=== PATIENT | male | born 1980 | race Caucasian/White ===

== ENCOUNTER 2018-04-10 18:35 | Emergency (ER) | payer MEDICAID ==
[2018-04-10 18:43] VITALS: BP 105/59
--- NOTE | 2018-04-11 01:44 | EDPHY ---
H & P Time Seen by Provider: 04/10/18 18:51 HPI/ROS: Patient left before being seen Smoking Status: Current every day smoker Physical Exam: Unable to perform exam Constitutional: Initial Vital Signs Temperature (C) 36.8 C 04/10/18 18:40 Heart Rate 104 H 04/10/18 18:40 Respiratory Rate 16 04/10/18 18:40 Blood Pressure 105/59 L 04/10/18 18:40 O2 Sat (%) 94 04/10/18 18:40 O2 Delivery Mode Room Air Allergies/Adverse Reactions: No Known Allergies Allergy (Unverified 04/10/18 18:38) Home Medications: Medication Instructions Recorded Adderall 10 MG (*) 04/10/18 Bentyl 10 MG (*) 04/10/18 CLONAZEPAM 04/10/18 Flexeril 10 MG (*) 04/10/18 Oxycodone HCl 04/10/18 traZODone 04/10/18 Departure - Departure Disposition: Home, Routine, Self-Care Referrals: NONE *PRIMARY CARE P,. [Unknown] - As per Instructions
== END 2018-04-10 19:13 | disposition home or self-care (01) ==
DX: R20.0 Anesthesia of skin (principal); Z53.21 Procedure and treatment not carried out due to patient leaving prior to being seen by health care provider

== ENCOUNTER 2018-05-31 20:58 | Emergency (ER) | payer MEDICAID ==
[2018-05-31 21:07] VITALS: BP 123/86
--- NOTE | 2018-05-31 21:16 | EDPHY ---
H & P Stated Complaint: Door closed on L hand, pain but no lacs Time Seen by Provider: 05/31/18 21:15 HPI/ROS: HPI: This is a 37-year-old male who presents with Chief Complaint: Door closed on L hand, pain but no lacs Location: Left hand Quality: Injury Duration: Prior to arrival Signs and Symptoms: No bleeding, no radiation, no numbness, no weakness, no tingling, no incontinence, no decreased range of motion, no swelling, + pain, no fever Timing: Acute Severity: Mild Context: Patient is right-hand dominant, presents with getting his left hand slammed in glass door accidentally prior to arrival. He reports that he was leaving [facility] restaurant when he accidentally swung his left arm back and his left hand got stuck in between the glass door and frame. He reports that he felt immediate, constant, moderate, nonradiating pain. Complains of spasms at the lateral aspect of his hand as well as pain on palpation at the base of the 4th finger. Denies any radiation, weakness, decreased range of motion. Modifying Factors: No [id number] medications or ice tried Comment: ROS: A comprehensive 10 system review of systems is otherwise negative aside from elements mentioned in the history of present illness. MEDICAL/SURGICAL/SOCIAL HISTORY: Medical history: Scoliosis Surgical history: Denies Social history: Current every day smoker. Employed. Family history noncontributory. CONSTITUTIONAL: Well-developed, well-nourished, middle-aged white male, awake and alert, no obvious distress HEENT: Atraumatic and normocephalic. NECK: supple EXTREMITIES: 2/2 pulses, strength 5/5, left WRIST: Extension to 70, flexion to 80, radial deviation to 20 degree, ulnar deviation to 30, no scaphoid tenderness, no tenderness over ulnar styloid, no tenderness over radial styloid , no pain with Chun test. Tenderness to palpation at the base of the 4th metacarpal but no obvious deformity/bruising. DIP/PIP/MCP flexion/ extension intact with good light touch sensation. no deformities, no clubbing, no cyanosis or edema. NEUROLOGICAL: no focal neuro deficits. GCS 15. Light touch sensation intact. SKIN: Warm and dry, no erythema. no rash. Good capillary refill. Source: Patient Exam Limitations: No limitations - Personal History Current Tetanus/Diphtheria Vaccine: Yes Current Tetanus Diphtheria and Acellular Pertussis (TDAP): Yes - Medical/Surgical History Hx Asthma: No Hx Chronic Respiratory Disease: No Hx Diabetes: No Hx Cardiac Disease: No Hx Renal Disease: No Hx Cirrhosis: No Hx Alcoholism: No Hx HIV/AIDS: No Hx Splenectomy or Spleen Trauma: No Other PMH: SCOLIOSIS - Social History Smoking Status: Current every day smoker Constitutional: Initial Vital Signs Temperature (C) 36.9 C 05/31/18 21:06 Heart Rate 91 05/31/18 21:06 Respiratory Rate 18 05/31/18 21:06 Blood Pressure 123/86 H 05/31/18 21:06 O2 Sat (%) 97 05/31/18 21:06 O2 Delivery Mode Room Air Allergies/Adverse Reactions: No Known Allergies Allergy (Unverified 04/10/18 18:38) Home Medications: Medication Instructions Recorded traZODone 04/10/18 Dicyclomine [Bentyl 10 MG (*)] 05/31/18 Medical Decision Making - Diagnostics Imaging Results: Imaging Impressions Hand X-Ray 05/31/18 21:10 Impression: Negative. No acute fracture. ED Course/Re-evaluation: Left hand x-ray ordered and ice pack applied Left hand x-ray my read via PAC shows no fracture, dislocation Advised supportive care No signs of neurovascular compromise/tenting of skin/compartment syndrome/ extremities and joints examined above and below area of concern and are neurovascularly intact. This patient was seen under the supervision of my secondary supervising physician. I evaluated care for this patient independently. Discussed this patient with Dr. Koch. Differential Diagnosis: Differential diagnosis includes but is not limited to metacarpal fracture, contusion, sprain, nerve injury, tendon injury. Departure - Departure Disposition: Home, Routine, Self-Care Clinical Impression: Contusion of left hand, initial encounter Condition: Good Instructions: Contusion in Adults (ED), Hand Sprain (ED) Additional Instructions: Limit the use of your left hand until pain free. Take Tylenol 650 mg every 4 hours and/or Ibuprofen 600 mg every 8 hours with food as needed for pain. Apply ice for 30 minutes at a time; 2-3 times per day for the next 1-2 days. The x-rays obtained in the emergency department today demonstrate no evidence of an obvious fracture. Sometimes fractures are not obvious on the initial set of x-rays performed in the ED. For this reason, you should have repeat x-rays performed in 7-10 days if you are having any pain exclude the possibility of an occult fracture. Referrals: Ramy Polanco MD [Medical Doctor] - Follow Up Only If Needed
== END 2018-05-31 21:46 | disposition home or self-care (01) ==
DX: S60.222A Contusion of left hand, initial encounter (principal); W23.1XXA Caught, crushed, jammed, or pinched between stationary objects, initial encounter; Y92.511 Restaurant or cafe as the place of occurrence of the external cause; F17.200 Nicotine dependence, unspecified, uncomplicated